=== PATIENT | female | born 1970 | race Caucasian/White ===

== ENCOUNTER 2023-07-03 08:58 | Outpatient (CLI) | payer OTHER, SELFPAY ==
--- NOTE | 2023-07-03 09:00 | ECG_ITS ---
Measurements Intervals [place] Rate: 84 P: 39 WY: 173 QRS: 25 QRSD: 82 T: 12 QT: 358 QTc: 425 Interpretive Statements SINUS RHYTHM NONSPECIFIC ST SEGMENT ABNORMALITY BORDERLINE ECG NO PREVIOUS ECG AVAILABLE FOR COMPARISON Electronically Signed On 07-03-2023 17:47:03 TRIM MASTER OPERATOR by Eloy Richard M.D.
[2023-07-03 09:50] LABS: Anion Gap 9 mmol/L (8-16); Blood Urea Nitrogen 13 mg/dL (7-17); Calcium 9.4 mg/dL (8.4-10.2); Carbon Dioxide 24 mmol/L (22-30); Chloride 104 mmol/L (98-107); Estimated Glomerular Filt Rate > 60; Glucose 120 mg/dL (65-110); Potassium 3.8 mmol/L (3.4-5.0); Sodium 137 mmol/L (137-145)
[2023-07-03 09:51] LABS: Alanine Aminotransferase 16 U/L (6-35); Albumin Level 4.4 g/dL (3.5-5.1); Alkaline Phosphatase 102 U/L (38-126); Amylase 89 U/L (30-110); Aspartate Amino Transferase 18 U/L (14-36); Bilirubin,Total 0.5 mg/dL (0.2-1.3); Lipase 85 U/L (23-300)
== END 2023-07-03 08:59 | disposition home or self-care (01) ==
LOC: ANHSURGERY 09:02
PROVIDERS: Anesthesiology; PCP Nurse Practitioner; Visit Provider Surgery
DX: K80.10 Calculus of gallbladder with chronic cholecystitis without obstruction (principal); E11.9 Type 2 diabetes mellitus without complications; I10 Essential (primary) hypertension; Z79.899 Other long term (current) drug therapy; Z01.818 Encounter for other preprocedural examination
CPT/HCPCS: 36415; 80048; 80076; 82150; 83690; 86850; 86900; 86901; 93005

== ENCOUNTER 2023-07-04 02:30 | Day surgery (SDC) | payer OTHER, SELFPAY ==
[2023-06-30 15:33] VITALS: BMI 34.1
--- NOTE | 2023-06-30 15:38 | PC.NURSE ---
Report to the Outpatient Waiting Room, entrance under the green pavilion located off [facility], at time 10:00 on date 07/04/23. Planned Procedure Time: 12:00. Time changes happen often and if your time is changed the preop area will call you the afternoon before. - You and your visitor will be asked to self-screen and do not enter if you have any COVID symptoms. - A mask is optional within the hospital at this time. Patients may have clear liquids (water, carbonated beverages, clear teas, apple juice) until 3 hours prior to surgery (9:00) with a maximum of 20 ounces. - No food from midnight until time of surgery Take the following medications with a SIP of water the morning of surgery: XANAX IF NEEDED DO NOT STOP ANY OF YOUR OTHER PRESCRIPTION MEDICATIONS PRIOR TO SURGERY ?EXCEPT THE FOLLOWING Medications to discontinue per physician: N/A Date to take last dose: N/A Please no make-up, nail greenlandic, hairspray, perfume, deodorant, or body powder the day of surgery. No jewelry (including any body piercings) or valuables the day of surgery, leave them at home. Please take a shower or bath the night before, or the morning of, surgery with an antibacterial soap. Wear comfortable, loose fitting clothing. - Jewelry must be removed prior to entering the operating room. Rings and piercings that are not removed may be cut off. - The hospital will not accept responsibility for valuables. - Please leave all valuables, including medications, at home the day of surgery. If you are going home after surgery, a licensed pile driver must drive you home. - NO public transportation without another adult if you receive anesthesia. - We recommend that an adult stay with you for 24 hours following discharge. - We also recommend that you do not drive, make important decision, drink alcoholic beverages, or take any drugs that were not prescribed by your health care provider for at least 24 hours after your discharge time. Follow any additional instructions given to you from your surgeon. If you or anyone in your household have experienced Covid symptoms in the past week, please notify your surgeon or the nurse liaison at the phone number below for possible testing. Telephone instructions given to PT - MAYA FREEMAN and asked if any additional questions and then verbalized understanding. Patient advised to call surgeon office or pre surgery nurse liaison [phone] if any additional questions.
--- OUTSIDE RECORDS SUMMARY | 2023-07-01 15:52 | XMS_ITS | Referral Summary ---
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 Role Phone Reina Lind Primary Care Provider [phone] Jaun Whaley DO Unavailable [phone] Reason for Referral * Consultation/Treatment (Urgent) - Authorized Specialty Diagnoses / Procedures Referred By Thomas mcbride Referred To Contact GENERAL SURGERY Diagnoses Abnormal US (ultrasound) of abdomen Gallstones Gallstones and inflammation of gallbladder without obstruction Procedures OFFICE/OUTPATIENT NEW LOW MDM 30-44 MINUTES OFFICE/OUTPT VISIT,NEW,LEVL IV OFFICE/OUTPT VISIT,NEW,LEVL V OFFICE/OUTPT VISIT,EST,LEVL III OFFICE/OUTPT VISIT,EST,LEVL IV OFFICE/OUTPT VISIT,EST,LEVL V Reina Lind FNP [address] [place] [address] [place] [address] Mc Garcia MD [address] [facility] [address] [place] [address] Referral ID Status Reason Start Date Expiration Date V isits Requested Visits Authorized [id number] Authorized 06/19/2023 06/19/2024 100 100 [facility] -- [place], [place] F[employer] Encounter Details Date Type Department Care Team Description
[2023-07-04] VITALS (8 sets, daily range): BP systolic 115–144; BP diastolic 50–70; PULSE 80–102; RESP 10–16; TEMP 36.1–36.9; O2SAT 93–100
[2023-07-04 10:48] LABS: Glucose Point of Care 107 mg/dl (65-105)
[2023-07-04] MEDS: ACETAMINOPHEN 500 MG TABLET 1000 MG PO (10:50)
[2023-07-04] MEDS: KETOROLAC 15 MG/ML VIAL (*BKC) IV PUSH (10:50)
--- NOTE | 2023-07-04 11:56 | WPDHPUPDATE1 ---
History and Physical Update Update Date/Time: 07/04/23 11:56 History and Physical has been reviewed, including an updated exam of the patient. There are NO changes in the patient's condition. Risks, benefits, and alternatives have been discussed and questions answered. Patient agrees to proceed with procedure.
--- NOTE | 2023-07-04 12:19 | WPDANESEPPF ---
Anes - Initial Pre Proc Eval Procedure: Operation Date: 07/04/23 12:00 Proposed Procedures p Laparoscopic Cholecystectomy - Mc Garcia MD Date/Time: 07/04/23 12:19 Surgeon: Mc Garcia MD Pre Op Diagnosis: Cholecystitis with stones Patient Data Age: 52 Gender: F Height: 1.65 m Weight: 91.2 kg Last Vital Signs Temp 36.9 C 07/04/23 10:56 Pulse 84 07/04/23 10:56 Resp 14 07/04/23 10:56 BP 134/69 07/04/23 10:56 Pulse Ox 100 07/04/23 10:56 O2 Del Method Room Air 07/04/23 10:56 Allergies Allergy/AdvReac Type Severity Reaction Status Date / Time No Known Allergies Allergy Verified 07/04/23 11:00 Home Medications Medication Instructions Recorded Confirmed Type alprazolam 1 mg tablet 1 mg PO DAILY PRN Anxiety 06/24/23 06/30/23 History amlodipine 5 mg tablet 5 mg PO HS 06/24/23 06/30/23 History chlorthalidone 25 mg tablet 12.5 mg PO DAILY 06/24/23 06/30/23 History drospirenone 3 mg-ethinyl 1 tablet PO HS 06/24/23 06/30/23 History estradiol 0.03 mg tablet (Rebecca (28)) losartan 100 mg tablet 100 mg PO DAILY 06/24/23 06/30/23 History metformin 500 mg tablet 500 mg PO DAILY 06/24/23 06/30/23 History venlafaxine 150 mg 150 mg PO HS 06/24/23 06/30/23 History capsule,extended release 24 hr famotidine 20 mg tablet 20 mg PO BID 06/30/23 06/30/23 History Laboratory Tests 07/04/23 10:41 POC Capillary Glucose 107 H mg/dl (65-105) Patient hx anesthesia problems: none Family hx anesthesia problems: none Results Review: All pre-operative results and documents have been reviewed as part of the pre-operative evaluation. [facility] Past Medical History Medical History Anxiety Depression Endometriosis Essential hypertension ORLIN on CPAP Type 2 diabetes mellitus Surgical History Surgical History History of laparoscopy 1996- for endometriosis Family History Family History Father Hypertension Mother Hypertension Other Heart disease Hypertension Congestive heart failure Bladder cancer Multiple myeloma Macular degeneration Osteoarthritis Social History Social History Smoking status: Never smoker Alcohol intake: current Alcohol use details: RARE Substance use: never Substance use type: does not use Living arrangements: alone Occupation/Education: occupation 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 Informed Consent: The patient's anesthetic plan and its attendant risks and benefits were discussed with the patient/family/POA. Questions were solicited and answers provided to the satisfaction of the patient/family/POA.
[2023-07-04] MEDS: ceFAZolin 2 GM/D5W 50 ML 2 GM/50 ML BAG IVPB (12:22)
[2023-07-04] MEDS: LACTATED RINGERS 1,000 ML 30 ML IV CONT ×2 (13:44→14:08)
[2023-07-04] MEDS: BUPIVACAINE/EPINEPHRINE 0.5% 50 ML VIAL 30 ML INFILTRATE (13:49)
--- NOTE | 2023-07-04 13:50 | W.PM.PROC2 ---
Procedure Note - Detailed Date of Procedure 07/04/23 Pre-op Diagnosis Cholecystitis with stones Post-op Diagnosis Other (Acute and chronic cholecystitis with cholelithiasis) Procedure Performed Laparoscopic cholecystectomy Surgeon Mc Garcia MD Extermination Inspector SATNAM Emanuel Anesthesia General and Local Indications Patient has had right upper quadrant abdominal pain that has been severe at times. She had imaging that showed gallstones and evidence of cholecystitis. She is taken to surgery now for laparoscopic cholecystectomy Findings Patient had both acute and chronic cholecystitis. Her gallbladder wall was quite thickened but still very edematous. She had fatty change of the liver. There were multiple stones in the gallbladder as expected. There was no cystic duct dilatation or common duct dilatation. Description of Procedure Patient was taken to surgery and induced into general anesthesia. The abdomen is prepped and draped. Trocars were placed in the usual fashion after 1st placing a varies needle. After adequate insufflation, the patient was placed in reverse Trendelenburg. We decompressed the gallbladder with a laparoscopic aspirator. It was immediately evident that the gallbladder wall was very thick from chronic inflammation. There was also a lot of edema suggesting acute inflammation as well. Once decompressed, the gallbladder was more easy to grasp. It was retracted anteriorly and a little towards the shoulder. We took down some adhesions to the gallbladder and expose the fundus. Traction was placed on the fundus and then dissection was carried out in the cholecystohepatic triangle. The fatty tissue around the cystic duct and artery was extremely edematous. It was also fibrotic on the surface of the fatty tissue. We carefully exposed the cystic duct and cystic artery. The gallbladder was dissected off the liver at its lower 3rd. Critical view was obtained. I then securely clipped and divided the cystic duct and cystic artery. The gallbladder was then dissected free from numerous adhesions and thickened edematous peritoneum attaching it to the liver. Towards the upper 3rd of the gallbladder, the inflammation was so severe that it was difficult to find the plane between the gallbladder and the liver. Entry into the gallbladder was made at 1 point. Minimal leakage occurred. We continued our dissection and eventually freed the entire gallbladder from the liver. The gallbladder was removed in an Endo-Catch bag from the 10/11 epigastric port. We replaced the epigastric trocar and then resumed our procedure. The liver was elevated and irrigated with saline. We suctioned the irrigant away and then set about cauterizing various bleeding points on the gallbladder fossa. The liver was so soft and fragile that even retracting it with a soft Kittner resulted in entry into the liver. Two different placements of the Kittner both resulted in some bleeding which required cautery. Eventually the gallbladder was made hemostatic. We repeatedly irrigated and suctioned the gallbladder fossa and the right upper quadrant until the irrigant was quite clean. There was no evidence of bleeding or bile leakage. We then evacuated CO2 and removed the trocar sleeves. The fascia at the epigastric trocar site was closed with 0 Vicryl suture. The subcu and skin were closed with 3-0 Vicryl suture as well. The other trocar sites were closed at the skin level with running 4-0 Monocryl skin suture. The wounds were dressed with Exofin surgical adhesive. Patient was awakened and taken to recovery in good condition. Sponge and needle counts were correct x2. Estimated Blood Loss -20 Drains No Packing No Pathology Yes (Gallbladder) Complications No immediate complications Condition Stable Disposition PACU [facility] Billing Surgery - Charge Forward: Surgery Billing (Laparoscopic cholecystectomy)
[2023-07-04 14:09] LABS: Glucose Point of Care 175 mg/dl (65-105)
[2023-07-04] MEDS: oxyCODONE HCL (*CRX) 5 MG TAB IR PO (15:12)
--- NOTE | 2023-07-04 15:13 | SUR.PHASEII ---
PATIENT INSTRUCTED HOW TO USE INCENTIVE SPIROMETER. ABLE TO RETURN DEMONSTRATION WELL.
== END 2023-07-04 15:31 | disposition home or self-care (01) ==
PROVIDERS: PCP Nurse Practitioner; Visit Provider Surgery
PROC: 0FT44ZZ Resection of Gallbladder, Percutaneous Endoscopic Approach (ICD-10-PCS; CPT 47562; principal; 2023-07-04 12:00)
DX: K80.10 Calculus of gallbladder with chronic cholecystitis without obstruction (principal); K76.0 Fatty (change of) liver, not elsewhere classified; E11.9 Type 2 diabetes mellitus without complications; I10 Essential (primary) hypertension; G47.33 Obstructive sleep apnea (adult) (pediatric); F41.9 Anxiety disorder, unspecified; F32.A Depression, unspecified; Z79.84 Long term (current) use of oral hypoglycemic drugs; E66.9 Obesity, unspecified; Z68.33 Body mass index [BMI] 33.0-33.9, adult
CPT/HCPCS: 47562; 36415; 80048; 80076; 82150; 82948; 83690; 86850; 86900; 86901; 88304; 93005; A9270; C1713; J0690; J1100; J1170; J1885; J2250; J2405; J2704; J3010; J7120